=== PATIENT | male | born 1970 | race Two or more races ===

== ENCOUNTER 2021-05-18 09:25 | Emergency (ER) | payer BC, OTHER ==
[~2021-05-18] VITALS: Ht 175.3 cm; Wt 81.6 kg
--- NOTE | 2021-05-18 09:43 | NUR ---
MD Liao at bedside for assessment
--- NOTE | 2021-05-18 10:00 | NUR ---
Patient states he fell on right of body and has rib pain
[2021-05-18] MEDS ORDERED: HYDR-4209 PO (10:41)
--- NOTE | 2021-05-18 10:45 | NUR ---
Patient discharged to home in stable condition. No signs of acute distress noted, patient able to ambulate with steady gait. Written and verbal after care instructions given. Patient verbalizes understanding of instructions. Stressed follow up or return to ER for worsening s/s.
[2021-05-18 10:52] VITALS: BP 120/78
== END 2021-05-18 10:50 | disposition home or self-care (01) ==
LOC: ER 09:27
DX: S20.212A Contusion of left front wall of thorax, initial encounter (principal); W10.9XXA Fall (on) (from) unspecified stairs and steps, initial encounter; Y92.89 Other specified places as the place of occurrence of the external cause
CPT/HCPCS: 71101; A4663